=== PATIENT | male | born 1935 | race Caucasian/White ===

== ENCOUNTER 2016-07-15 09:00 | Inpatient (IN) | payer OTHER ==
[~2016-07-15] VITALS: Ht 170.2 cm; Wt 77.5 kg
[~2016-07-15 09:00] MED LIST: AMLODIPINE BESY10 MG PO; ASPIRIN325 MG PO; ATENOLOL50 MG PO; CLEOCIN300 MG PO; COUMADIN3 MG PO; Cardizem CD,Cartia X PO; Coumadin,Jantoven PO; DILTIAZEM 24HR180 MG PO; DuoNeb IH; FLEXERIL10 MG PO; Glucophage PO; KEFLEX500 MG PO; LIPITOR40 MG PO; LISINOPRIL40 MG PO; Lasix PO; Levaquin PO; PREDNISONE20 MG PO; ZITHROMAX Z-PA250 MG PO; Zestril,Prinivil PO; Zyvox PO; predniSONE PO
[2016-07-15 10:31] LABS: BASOPHIL COUNT 0.1 K/uL (0-0.1); EOSINOPHIL (%) 0.1 % (0-5); HEMATOCRIT 44.2 % (38.0-50.0); IMMATURE GRANULOCYTE (%) 0.4 % (0.0-0.7); IMMATURE GRANULOCYTE COUNT 0.5 K/uL; LYMPHOCYTE COUNT 0.7 K/uL (1.0-2.8); MCH 29.6 PG (29.0-34.0); MCHC 33.9 G/DL (30.0-36.0); MCV 87.2 FL (86-99); MEAN PLAT.VOLUME 9.5 uM^3 (9.0-12.4); MONOCYTE (%) 8.7 % (3-12); MONOCYTE COUNT 1.1 K/uL (0-0.8); NEUTROPHIL (%) 85.1 % (45-76); NEUTROPHIL COUNT 10.5 K/uL (1.8-6.4); PLATELET COUNT 278 K/uL (156-360); RBC DIS.WIDTH-CV 15.6 % (11.8-14.6); RBC DIS.WIDTH-SD 49.7 % (39-53); RED BLOOD COUNT 5.07 M/uL (4.00-5.50); WHITE BLOOD COUNT 12.3 K/uL (4.1-10.2)
[2016-07-15 10:41] LABS: INTER. NORMALIZED RATIO 1.9; PROTHROMBIN TIME 19.7 (9.2-11.2); PTT 34.3 (25-32)
[2016-07-15 10:45] LABS: CHLORIDE 103 mEq/L (99-109); POTASSIUM 4.3 mEq/L (3.7-5.4); SODIUM 136 mEq/L (136-147)
[2016-07-15 10:46] LABS: GLUCOSE 138 mg/dL (70-99)
[2016-07-15 10:48] LABS: ANION GAP 12 MEQ/L (2-14)
[2016-07-15 10:50] LABS: GFR ESTIMATE (CALCULATED) > 59 mL/min/
[2016-07-15 10:51] LABS: UREA NITROGEN (BUN) 16 mg/dL (9-23)
[2016-07-15 10:55] LABS: TROP-I INTERPRETATION NEGATIVE; TROPONIN-I 0.11 ng/mL (0.0-0.30)
[2016-07-15] MEDS ORDERED: WARFARIN SODIUM1 MG PO ×2 (13:20→13:23)
[2016-07-15] MEDS ORDERED: WARFARIN SODIUM2 MG PO (13:20)
[2016-07-15] MEDS ORDERED: ONE DAILY TABL1 EAC1 PO (13:24)
[2016-07-15 22:03] VITALS: BP 135/72
[2016-07-15 22:41] VITALS: BP 165/77
[2016-07-15 23:14] LABS: INFLUENZA A VIRAL ANTIGEN NEGATIVE; INFLUENZA B VIRAL ANTIGEN NEGATIVE
[2016-07-16] VITALS (12 sets, daily range): BP systolic 113–158; BP diastolic 60–108
[2016-07-16 05:56] LABS: EOSINOPHIL (%) 0 % (0-5); IMMATURE GRANULOCYTE (%) 0.3 % (0.0-0.7); IMMATURE GRANULOCYTE COUNT 0.1 K/uL; LYMPHOCYTE COUNT 0.9 K/uL (1.0-2.8); MCH 29.4 PG (29.0-34.0); MCV 89.2 FL (86-99); MONOCYTE (%) 3.8 % (3-12); MONOCYTE COUNT 0.6 K/uL (0-0.8); NEUTROPHIL (%) 89.4 % (45-76); NEUTROPHIL COUNT 12.9 K/uL (1.8-6.4); PLATELET COUNT 262 K/uL (156-360); RBC DIS.WIDTH-CV 15.6 % (11.8-14.6); RBC DIS.WIDTH-SD 50.8 % (39-53); RED BLOOD COUNT 4.93 M/uL (4.00-5.50); WHITE BLOOD COUNT 14.4 K/uL (4.1-10.2)
[2016-07-16 06:10] LABS: INTER. NORMALIZED RATIO 1.8; PROTHROMBIN TIME 18.6 (9.2-11.2)
[2016-07-16 06:24] LABS: ANION GAP 13 MEQ/L (2-14); CHLORIDE 100 MEQ/L (99-109); GFR ESTIMATE (CALCULATED) > 59 mL/min/; GLUCOSE 170 mg/dL (70-99); POTASSIUM 4.4 MEQ/L (3.7-5.4); SAMPLE HEMOLYSIS CHECK 0; SAMPLE ICTERIC CHECK 0; SAMPLE LIPEMIA CHECK 0; SODIUM 134 MEQ/L (136-147)
[2016-07-16 06:26] LABS: UREA NITROGEN (BUN) 26 mg/dL (9-23)
[2016-07-16 07:21] LABS: INTERNAL CONTROL VALID? YES
[2016-07-16 11:54] LABS: BASE EXCESS -3.1 mEq/L (-3 to +3); BICARBONATE 19.7 mEq/L (22-26); CARBOXY HGB 2.3 % (0-5); COMMENTS - BLOOD GASES A+C+; DEVICE NC; METHEMOGLOBIN 1.6 % (0-1.5); O2 FLOW 6 L/MIN; PCO2 29 mm Hg (35-45); PO2 59 mm Hg (80-100); SITE RRA; TOTAL RESP RATE 26 resp/min; pH 7.44 (7.35-7.45)
[2016-07-16 14:02] LABS: BASE EXCESS -5.9 mEq/L (-3 to +3); BICARBONATE 18.8 mEq/L (22-26); CARBOXY HGB 2.3 % (0-5); COMMENTS - BLOOD GASES A+C+; DEVICE HHFNC; FI02 100 %; METHEMOGLOBIN 1.2 % (0-1.5); O2 FLOW 50 L/MIN; PCO2 34 mm Hg (35-45); PO2 90 mm Hg (80-100); SITE RRA; TOTAL RESP RATE 30 resp/min; pH 7.35 (7.35-7.45)
[2016-07-16 16:32] LABS: MAGNESIUM 1.8 mg/dl (1.3-2.7)
[2016-07-16 17:01] LABS: METH RESISTANT S AUREUS PCR NEGATIVE (NEGATIVE)
[2016-07-16 17:05] LABS: PROBE CHECK PASS; SPECIMEN PROCESSING CONTROL PASS
[2016-07-17] VITALS (17 sets, daily range): BP systolic 105–143; BP diastolic 55–94
[2016-07-17 02:42] LABS: ADD MIUA? YES; BILIRUBIN NEGATIVE; BLOOD TRACE; COLOR YELLOW ((YELLOW)); GLUCOSE (STRIP) NEGATIVE; KETONES NEGATIVE; LEUKOCYTES NEGATIVE; NITRITE NEGATIVE; PH, URINE 5.5 (5-8); PROTEIN (STRIP) TRACE; SPECIFIC GRAVITY 1.019 (1.000-1.030)
[2016-07-17 02:57] LABS: BACTERIA RARE; CASTS NONE SEEN /LPF; CRYSTALS NONE SEEN; EPITHELIAL CELLS RARE; MUCUS NONE SEEN; RED BLOOD CELLS RARE /HPF (0-5); UCUL ADDED? NO; WHITE BLOOD CELLS RARE /HPF (0-5)
[2016-07-17 06:05] LABS: ANION GAP 8 MEQ/L (2-14); CHLORIDE 103 MEQ/L (99-109); GFR ESTIMATE (CALCULATED) > 59 mL/min/; GLUCOSE 168 mg/dL (70-99); MAGNESIUM 1.9 mg/dl (1.3-2.7); POTASSIUM 4.1 MEQ/L (3.7-5.4); SAMPLE HEMOLYSIS CHECK 0; SAMPLE ICTERIC CHECK 0; SAMPLE LIPEMIA CHECK 0; SODIUM 139 MEQ/L (136-147); UREA NITROGEN (BUN) 23 mg/dL (9-23)
[2016-07-17 06:12] LABS: INTER. NORMALIZED RATIO 2.3
[2016-07-17 06:28] LABS: EOSINOPHIL (%) 0 % (0-5); HEMATOCRIT 40.2 % (38.0-50.0); IMMATURE GRANULOCYTE (%) 0.3 % (0.0-0.7); LYMPHOCYTE COUNT 0.9 K/uL (1.0-2.8); MCH 29.8 PG (29.0-34.0); MCHC 33.3 G/DL (30.0-36.0); MCV 89.3 FL (86-99); MEAN PLAT.VOLUME 10.2 uM^3 (9.0-12.4); MONOCYTE (%) 3.5 % (3-12); MONOCYTE COUNT 0.3 K/uL (0-0.8); NEUTROPHIL (%) 86.5 % (45-76); NEUTROPHIL COUNT 8.3 K/uL (1.8-6.4); PLATELET COUNT 208 K/uL (156-360); RBC DIS.WIDTH-CV 15.7 % (11.8-14.6); RBC DIS.WIDTH-SD 50.3 % (39-53)
[2016-07-17 06:29] LABS: WHITE BLOOD COUNT 9.6 K/uL (4.1-10.2)
[2016-07-17 17:30] LABS: POINT-OF-CARE METER ID UU14162636
[2016-07-18] VITALS (12 sets, daily range): BP systolic 119–171; BP diastolic 65–87
[2016-07-18 00:01] LABS: POINT-OF-CARE METER ID UU14162636
[2016-07-18 05:35] LABS: HEMATOCRIT 40.4 % (38.0-50.0); MCH 28.4 PG (29.0-34.0); MCHC 31.9 G/DL (30.0-36.0); MEAN PLAT.VOLUME 9.9 uM^3 (9.0-12.4); PLATELET COUNT 220 K/uL (156-360); RBC DIS.WIDTH-CV 15.6 % (11.8-14.6); RBC DIS.WIDTH-SD 50.8 % (39-53); RED BLOOD COUNT 4.54 M/uL (4.00-5.50); WHITE BLOOD COUNT 9.8 K/uL (4.1-10.2)
[2016-07-18 05:41] LABS: INTER. NORMALIZED RATIO 2.5
[2016-07-18 05:57] LABS: ANION GAP 7 MEQ/L (2-14); CHLORIDE 105 MEQ/L (99-109); GFR ESTIMATE (CALCULATED) > 59 mL/min/; GLUCOSE 180 mg/dL (70-99); POTASSIUM 3.5 MEQ/L (3.7-5.4); SAMPLE HEMOLYSIS CHECK 0; SAMPLE ICTERIC CHECK 0; SAMPLE LIPEMIA CHECK 0; SODIUM 140 MEQ/L (136-147); UREA NITROGEN (BUN) 21 mg/dL (9-23)
[2016-07-18 06:17] LABS: EOSINOPHIL (%) 0 % (0-5); IMMATURE GRANULOCYTE (%) 0.3 % (0.0-0.7); LYMPHOCYTE COUNT 1.1 K/uL (1.0-2.8); MONOCYTE (%) 2.5 % (3-12); MONOCYTE COUNT 0.3 K/uL (0-0.8); NEUTROPHIL (%) 85.6 % (45-76); NEUTROPHIL COUNT 8.4 K/uL (1.8-6.4)
[2016-07-18 12:37] LABS: POINT-OF-CARE METER ID UU13113748
[2016-07-18 23:40] LABS: POINT-OF-CARE METER ID UU14174225
[2016-07-19 03:44] VITALS: BP 151/89
[2016-07-19 06:18] LABS: HEMATOCRIT 41.3 % (38.0-50.0); MCH 28.5 PG (29.0-34.0); MCHC 32.4 G/DL (30.0-36.0); MCV 87.9 FL (86-99); MEAN PLAT.VOLUME 9.8 uM^3 (9.0-12.4); PLATELET COUNT 213 K/uL (156-360); RBC DIS.WIDTH-CV 15.3 % (11.8-14.6); RBC DIS.WIDTH-SD 49.6 % (39-53); WHITE BLOOD COUNT 10.6 K/uL (4.1-10.2)
[2016-07-19 06:26] LABS: INTER. NORMALIZED RATIO 3.3; PROTHROMBIN TIME 34.4 (9.2-11.2)
[2016-07-19 06:30] LABS: EOSINOPHIL (%) 0 % (0-5); IMMATURE GRANULOCYTE (%) 0.6 % (0.0-0.7); IMMATURE GRANULOCYTE COUNT 0.1 K/uL; LYMPHOCYTE COUNT 0.9 K/uL (1.0-2.8); MONOCYTE (%) 2.3 % (3-12); MONOCYTE COUNT 0.2 K/uL (0-0.8); NEUTROPHIL (%) 88.4 % (45-76); NEUTROPHIL COUNT 9.4 K/uL (1.8-6.4)
[2016-07-19 06:42] LABS: ANION GAP 10 MEQ/L (2-14); CHLORIDE 104 MEQ/L (99-109); GFR ESTIMATE (CALCULATED) > 59 mL/min/; GLUCOSE 149 mg/dL (70-99); MAGNESIUM 1.9 mg/dl (1.3-2.7); POTASSIUM 4.1 MEQ/L (3.7-5.4); SAMPLE HEMOLYSIS CHECK 1; SAMPLE ICTERIC CHECK 0; SAMPLE LIPEMIA CHECK 0; SODIUM 141 MEQ/L (136-147); UREA NITROGEN (BUN) 19 mg/dL (9-23)
[2016-07-19 07:20] VITALS: BP 155/76
[2016-07-19 11:40] VITALS: BP 146/76
[2016-07-19 16:00] VITALS: BP 174/96
[2016-07-19 19:32] VITALS: BP 160/95
[2016-07-20 07:01] LABS: EOSINOPHIL (%) 0 % (0-5); HEMATOCRIT 42.3 % (38.0-50.0); IMMATURE GRANULOCYTE (%) 0.9 % (0.0-0.7); IMMATURE GRANULOCYTE COUNT 0.1 K/uL; LYMPHOCYTE COUNT 1.2 K/uL (1.0-2.8); MCH 28.9 PG (29.0-34.0); MCHC 33.1 G/DL (30.0-36.0); MCV 87.4 FL (86-99); MEAN PLAT.VOLUME 9.8 uM^3 (9.0-12.4); MONOCYTE (%) 2.8 % (3-12); MONOCYTE COUNT 0.3 K/uL (0-0.8); NEUTROPHIL (%) 85.6 % (45-76); NEUTROPHIL COUNT 9.3 K/uL (1.8-6.4); PLATELET COUNT 228 K/uL (156-360); RBC DIS.WIDTH-CV 15.4 % (11.8-14.6); RBC DIS.WIDTH-SD 49.4 % (39-53); RED BLOOD COUNT 4.84 M/uL (4.00-5.50); WHITE BLOOD COUNT 10.9 K/uL (4.1-10.2)
[2016-07-20 07:17] LABS: INTER. NORMALIZED RATIO 3.9; PROTHROMBIN TIME 41.8 (9.2-11.2)
[2016-07-20 07:24] LABS: ANION GAP 10 MEQ/L (2-14); CHLORIDE 102 MEQ/L (99-109); GFR ESTIMATE (CALCULATED) > 59 mL/min/; GLUCOSE 131 mg/dL (70-99); MAGNESIUM 1.8 mg/dl (1.3-2.7); POTASSIUM 3.7 MEQ/L (3.7-5.4); SAMPLE HEMOLYSIS CHECK 0; SAMPLE ICTERIC CHECK 0; SAMPLE LIPEMIA CHECK 0; SODIUM 140 MEQ/L (136-147); UREA NITROGEN (BUN) 16 mg/dL (9-23)
[2016-07-20 07:29] VITALS: BP 135/88
[2016-07-20] MEDS ORDERED: PREDNISONE20 MG PO (09:32)
[2016-07-20] MEDS ORDERED: AMOX TR-K CLV1 EAC4 PO (09:35)
== END 2016-07-20 11:20 | disposition home or self-care (01) | DRG 193 ==
LOC: EME 09:00 → 4SOUTH 12:41 → 4WEST 12:41 → EDOF 12:41 → 4SOUTH 22:27 → 4WEST 07-16 14:21 → 5SOUTH 07-18 14:35
PROVIDERS: Emergency Medicine; Hospitalist; Internal Medicine; Internal Medicine Nephrology
PROC: 5A0935Z Assistance with Respiratory Ventilation, Less than 24 Consecutive Hours (ICD-10-PCS; principal; 2016-07-15)
DX: J18.9 Pneumonia, unspecified organism (principal); J96.01 Acute respiratory failure with hypoxia; I50.33 Acute on chronic diastolic (congestive) heart failure; J44.9 Chronic obstructive pulmonary disease, unspecified; I48.2 Chronic atrial fibrillation; I27.2 Other secondary pulmonary hypertension; R59.0 Localized enlarged lymph nodes; I25.10 Atherosclerotic heart disease of native coronary artery without angina pectoris; I10 Essential (primary) hypertension; E78.5 Hyperlipidemia, unspecified; R73.9 Hyperglycemia, unspecified; M17.0 Bilateral primary osteoarthritis of knee; E87.6 Hypokalemia; Z95.5 Presence of coronary angioplasty implant and graft; Z79.01 Long term (current) use of anticoagulants
CPT/HCPCS: 36600; 70450; 71010; 71250; 73564; 80048; 80202; 81003; 82803; 82948; 83735; 83880; 84100; 84484; 85025; 85027; 85610; 85730; 87040; 87070; 87205; 87449; 87502; 87641; 93005; 93306; 94002; 94640; 94640 76; 94760; 94799; 97530 GO; 99202; 99281; 99285; J0456; J0696; J1650; J1940; J2543; J2920; J2930; J3370; J3475; J7030; J7050; J7512; S0028